=== PATIENT | male | born 1945 | race Caucasian/White ===

== ENCOUNTER 2016-11-22 14:46 | Inpatient (IN) | payer MEDICARE, OTHER ==
[~2016-11-22] VITALS: Ht 180.3 cm; Wt 79.4 kg
[2016-11-22 17:45] VITALS: BP 109/65
--- NOTE | 2016-11-22 17:54 | NUR ---
RN-CO: Notified Dr Mccain and he gave admitting orders. Noted.
[2016-11-22] MEDS ORDERED: LORAZEPAM 0.5 MG TABLET PO PRN (18:00)
[2016-11-22] MEDS ORDERED: ACETAMINOPHEN 325 MG TABLET PO PRN (18:00)
[2016-11-22] MEDS ORDERED: TEMAZEPAM 7.5 MG CAPSULE PO PRN (18:00)
[2016-11-22] MEDS ORDERED: MAGNESIUM HYDROXIDE 30 ML UDC PO PRN (18:00)
[2016-11-22] MEDS ORDERED: MAG HYDROX/AL HYDROX/SIMETH 30 ML UDC PO PRN (18:00)
[2016-11-22 18:27] VITALS: BP 109/65
[2016-11-22 20:00] VITALS: BP 114/50
[2016-11-22] MEDS ORDERED: INSU100I19 SQ (21:02)
[2016-11-22] MEDS ORDERED: METF850T2 PO (21:02)
[2016-11-22] MEDS ORDERED: TAMS-12 PO (21:02)
[2016-11-22] MEDS ORDERED: ACET1TAB23 PO (21:02)
[2016-11-22] MEDS ORDERED: DULO60CA45 PO (21:02)
[2016-11-22] MEDS ORDERED: INSU100V SQ (21:02)
[2016-11-22] MEDS ORDERED: GABA100C PO (21:02)
[2016-11-22] MEDS ORDERED: DONE5TAB3 PO (21:02)
--- NOTE | 2016-11-22 21:03 | NUR ---
GPS/RN NOTE: ADMITTED FROM [facility] ON 5150 HOLD FOR DTS. PER HOLD PATIENT WAS SUICIDAL DUE TO DEPRESSION. UPON FACE TO FACE, PATIENT NOTED TO BE HOPELESS, AND HELPLESS, NO LONGER WANTS TO LIVE WITH HIS NIECE BECAUSE HE FEELS HE IS TOO MUCH TROUBLE, HAS MULTIPLE MEDICAL AND MOBILITY PROBLEM, FEELS LIKE A BURDEN. HE DOES NOT WANT TO LIVE ANYMORE, TOOK 7 PAIN PILLS IN A SUICIDE ATTEMPT. PATIENT IS RESTING IN BED, COMFORTABLE, NO APPARENT DISTRESS NOTED. RESPIRATION EVEN, BREATHING PATTERN NON-LABORED. STATED THAT HE HAS NO PLAN OF HURTING HIMSELF AT THIS TIME. AWAKE, ALERT, ORIENTED X4, THOUGHT PROCESS INTACT, POOR JUDGEMENT, POOR INSIGHT. POOR DECISION MAKING, DEPRESSED, APPROPRIATE. CALM, COOPERATIVE. SKIN ASSESSMENT DONE, SEE PHOTOS. PATIENT IS UNDER THE PSYCHIATRIC CARE OF DR. SOL AND UNDER THE MEDICAL CARE OF GIA REEDER. BELONGINGS INVENTORIED AND CHECKED FOR CONTRABAND, VALUABLES PUT IN TO SAFE. BED LOCKED AND PLACED ON LOWEST POSITION. WILL CONTINUE TO MONITOR Q 15 MINS. TO MAINTAIN SAFETY.
[2016-11-23 06:51] LABS: ALANINE AMINOTRANSFERASE 20 U/L (12-78); ALBUMIN 3.8 g/dL (3.4-5.0); ALKALINE PHOSPHATASE 52 U/L (46-116); ASPARTATE AMINOTRANSFERASE 14 U/L (15-37); BILIRUBIN,TOTAL 0.7 mg/dL (0.2-1.0); CALCIUM, SERUM 9.5 mg/dL (8.5-10.1); CARBON DIOXIDE 28 mmol/L (21-32); CHLORIDE 103 mmol/L (98-107); CREATININE 1.2 mg/dL (0.6-1.3); GLUCOSE 166 mg/dL (74-106); POTASSIUM 3.9 mmol/L (3.5-5.1); SODIUM SERUM 140 mmol/L (136-145); TOTAL PROTEIN, SERUM 7.3 g/dL (6.4-8.2); UREA NITROGEN, BLOOD 25 mg/dL (7-18)
[2016-11-23 07:12] LABS: CHOLESTEROL 183 mg/dL (<200); HDL CHOLESTEROL 25 mg/dL (40-60); LDL 111 mg/dL (0-99); TRIGLYCERIDES 237 mg/dL (30-150)
[2016-11-23 08:00] VITALS: BP 134/68
[2016-11-23] MEDS ORDERED: DEXTROSE 50%-WATER 50 ML DISP.SYRIN IV PRN (15:30)
[2016-11-23 16:00] VITALS: BP 135/57
[2016-11-23] MEDS: METFORMIN 850 MG TABLET PO SCH (16:32)
[2016-11-23] MEDS: GABAPENTIN 100 MG CAPSULE PO SCH (16:32)
[2016-11-23] MEDS ORDERED: GABAPENTIN 100 MG CAPSULE PO SCH (17:00)
[2016-11-23] MEDS: BLOOD SUGAR DIAGNOSTIC 1 EACH STRIP IN SCH ×2 (17:18→21:54)
[2016-11-23] MEDS: INSULIN REGULAR, HUMAN 100 UNIT/ML 3 ML VIAL SQ PRN ×2 (17:56→21:57)
--- NOTE | 2016-11-23 18:00 | NUR ---
BRAZING FURNACE OPERATOR-NOTES PATIENT BLOOD SUGAR WAS 240MG/DL, 4 UNITS OF HUMULIN R GIVEN PRN ORDER.
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
--- NOTE | 2016-11-23 19:30 | NUR ---
PS RN NOTE, RECEIVED PATIENT AWAKE AND IN BED, NO S/S OR COMPLAINTS OF PAIN AT THIS TIME. PATIENT IS DISPLAYING NO S/S OF APPARENT DISTRESS AT THIS TIME. PATIENT BREATHING IS UNLABORED WITH EQUAL RISE AND FALL OF THE CHEST. PATIENT IS ALERT AND ORIENTED X 3 ON ROOM AIR WITH A SPO2 97%. PATIENT COMPLAINT WITH MEDICATION, DEPRESSED, POOR INSIGHT, POOR JUDGEMENT, COOPERATIVE, CONFUSED AT TIMES, AND NEEDS REORIENTATION. PATIENT DENIES SUICIDE AND HOMICIDAL IDEATIONS AT THIS TIME. PATIENT ASSISTED WITH TURNING AND REPOSITIONING Q2HR AND PRN FOR COMFORT AND CIRCULATION. PATIENT HAS NO NEEDS AT THIS TIME. PATIENT EDUCATED ON THE USE OF THE CALL HURT. PATIENT BED SIDE RAILS UP X2 FOR SAFETY, BED IS LOCKED AND LOW WILL CONTINUE TO MONITOR AND MAINTAIN SAFETY.
[2016-11-23 20:00] VITALS: BP 142/75
[2016-11-23] MEDS: DULOXETINE HCL 30 MG CAPSULE.DR PO SCH (20:45)
--- NOTE | 2016-11-23 21:57 | NUR ---
GPS RN NOTE, PERFORMED ACCU CHECK ON PATIENT WITH A BLOOD SUGAR RESULT OF 236. GAVE 4 UNITS OF REGULAR INSULIN AND 12UNITS OF LEVEMIR INSULIN PER SLIDING. WILL CONTINUE TO MONITOR THIS PATIENT.
[2016-11-23] MEDS: INSULIN DETEMIR 100 UNIT/ML CARTRIDGE SQ SCH (21:58)
[2016-11-24 06:37] LABS: BASOPHILS # (AUTO) 0.1 /CMM (0.0-0.2); BASOPHILS % (AUTO) 0.9 % (0.0-2.0); EOSINOPHILS # (AUTO) 0.2 /CMM (0.0-0.7); EOSINOPHILS % (AUTO) 2.4 % (0.0-6.0); HEMATOCRIT 41 % (39-51); HEMOGLOBIN 13.7 g/dL (13.5-17.5); LYMPHOCYTES # (AUTO) 2.4 /CMM (0.8-4.8); LYMPHOCYTES % (AUTO) 31.8 % (20.0-44.0); MEAN CORPUSCULAR HEMOGLOBIN 28 PG (26.0-33.0); MEAN CORPUSCULAR HGB CONC 34 g/dl (31.0-36.0); MEAN CORPUSCULAR VOLUME 82 fL (80-96); MONOCYTES # (AUTO) 0.7 /CMM (0.1-1.30); MONOCYTES % (AUTO) 8.7 % (2.0-12.0); NEUTROPHILS # (AUTO) 4.3 /CMM (1.8-8.9); NEUTROPHILS % (AUTO) 56.2 % (43.0-81.0); PLATELET COUNT (AUTO) 221 /CMM (150-450); RDW COEFFICIENT OF VARIATION 17.8 (11.5-15.0); RED BLOOD CELL COUNT(AUTO) 4.97 MIL/uL (4.5-6.0); WHITE BLOOD COUNT (AUTO) 7.6 K/uL (4.3-11.0)
[2016-11-24 06:50] LABS: CALCIUM, SERUM 9.6 mg/dL (8.5-10.1); CARBON DIOXIDE 28 mmol/L (21-32); CHLORIDE 104 mmol/L (98-107); CREATININE 0.9 mg/dL (0.6-1.3); GLUCOSE 162 mg/dL (74-106); MAGNESIUM 1.5 mg/dL (1.8-2.4); POTASSIUM 3.9 mmol/L (3.5-5.1); SODIUM SERUM 140 mmol/L (136-145); UREA NITROGEN, BLOOD 22 mg/dL (7-18)
[2016-11-24] MEDS: BLOOD SUGAR DIAGNOSTIC 1 EACH STRIP IN SCH ×4 (07:51→21:36)
[2016-11-24 08:00] VITALS: BP 138/71
[2016-11-24] MEDS: DONEPEZIL 5 MG TABLET PO SCH (08:02)
[2016-11-24] MEDS: TAMSULOSIN 0.4 MG CAP.SR.24H PO SCH (08:03)
[2016-11-24] MEDS: GABAPENTIN 100 MG CAPSULE PO SCH ×2 (08:03→16:35)
[2016-11-24] MEDS: METFORMIN 850 MG TABLET PO SCH ×2 (08:03→16:35)
[2016-11-24 08:24] VITALS: BP 138/71
[2016-11-24] MEDS: INSULIN REGULAR, HUMAN 100 UNIT/ML 3 ML VIAL SQ PRN ×4 (08:36→21:38)
[2016-11-24 16:00] VITALS: BP 107/60
[2016-11-24] MEDS ORDERED: DEXTROSE 50%-WATER 50 ML DISP.SYRIN IV PRN (18:30)
[2016-11-24 20:03] VITALS: BP 99/59
[2016-11-24] MEDS: DULOXETINE HCL 30 MG CAPSULE.DR PO SCH (20:20)
--- NOTE | 2016-11-24 20:30 | NUR ---
GPS/RN NOTE: RESTING COMFORTABLY IN BED, AWAKE, ALERT, ORIENTED X3, NO APPARENT DISTRESS NOTED. SKIN ASSESSMENT DONE, PHOTOS TAKEN. WILL CONTINUE TO MONITOR.
[2016-11-24] MEDS: INSULIN DETEMIR 100 UNIT/ML CARTRIDGE SQ SCH (21:40)
--- NOTE | 2016-11-24 21:41 | NUR ---
GPS/RN NOTE: ACCUCHECK 234 MG/DL. 4 UNITS REGULAR INSULIN S. SCALE SC. ADMINISTERED. HS SNACKS GIVEN.
--- NOTE | 2016-11-25 07:30 | NUR ---
GPS/RN BS 131, ADMINISTERED 2 UNITS REGULAR INSULIN, WILL CONTINUE TO MONITOR.
[2016-11-25 08:00] VITALS: BP 157/83
[2016-11-25] MEDS: DONEPEZIL 5 MG TABLET PO SCH (08:17)
[2016-11-25] MEDS: GABAPENTIN 100 MG CAPSULE PO SCH ×2 (08:17→16:15)
[2016-11-25] MEDS: METFORMIN 850 MG TABLET PO SCH ×2 (08:17→16:15)
[2016-11-25] MEDS: TAMSULOSIN 0.4 MG CAP.SR.24H PO SCH (08:17)
[2016-11-25] MEDS: INSULIN REGULAR, HUMAN 100 UNIT/ML 3 ML VIAL SQ PRN ×4 (08:20→22:11)
[2016-11-25] MEDS: BLOOD SUGAR DIAGNOSTIC 1 EACH STRIP IN SCH ×4 (08:50→22:13)
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
--- NOTE | 2016-11-25 12:00 | NUR ---
GPS/RN BS 191, ADMINISTERED 3 UNITS REGULAR INSULIN, WILL CONTINUE TO MONITOR.
[2016-11-25 16:00] VITALS: BP 128/63
--- NOTE | 2016-11-25 18:00 | NUR ---
GPS/RN BS 230, ADMINISTERED 4 UNITS REGULAR INSULIN, WILL CONTINUE TO MONITOR.
--- NOTE | 2016-11-25 18:17 | NUR ---
Initial discharge plan: Pt. states he was living at an assisted living but did not like it there and went home with his nephew and niece at [address] [facility] [address] and would like to be placed in a facility. SW will follow up with the patient and MD and will find an accepting facility for the patient. SW will help a form and safe and discharge.
[2016-11-25 19:45] VITALS: BP 104/56
[2016-11-25] MEDS: DULOXETINE HCL 30 MG CAPSULE.DR PO SCH ×2 (20:29→21:46)
[2016-11-25] MEDS: ATORVASTATIN 40 MG TABLET PO SCH (21:45)
[2016-11-25] MEDS: INSULIN DETEMIR 100 UNIT/ML CARTRIDGE SQ SCH (22:12)
--- NOTE | 2016-11-26 06:29 | NUR ---
RN GPS NOTE PT .REMAINED IN STABLE CONDITION RESTING IN HER BED ,NO ACUTE DISTRESS NOTED ATTENDED ALL NEEDS AND ANTICIPATED ,WILL ENDORSE TO NEXT SHIFT FOR CONTINUITY OF CARE
[2016-11-26 08:00] VITALS: BP 126/69
--- NOTE | 2016-11-26 08:00 | NUR ---
GPS/RN BS 210, ADMINISTERED 4 UNITS REGULAR INSULIN, WILL CONTINUE TO MONITOR.
[2016-11-26] MEDS: TAMSULOSIN 0.4 MG CAP.SR.24H PO SCH (08:04)
[2016-11-26] MEDS: DONEPEZIL 5 MG TABLET PO SCH (08:04)
[2016-11-26] MEDS: BLOOD SUGAR DIAGNOSTIC 1 EACH STRIP IN SCH ×4 (08:04→21:47)
[2016-11-26] MEDS: NICOTINE PATCH (7MG) 7 MG PATCH.TD24 TD SCH (08:04)
[2016-11-26] MEDS: ASPIRIN 81 MG TAB.CHEW PO SCH (08:04)
[2016-11-26] MEDS: GABAPENTIN 100 MG CAPSULE PO SCH ×3 (08:04→16:31)
[2016-11-26] MEDS: METFORMIN 850 MG TABLET PO SCH ×2 (08:04→16:31)
[2016-11-26] MEDS: INSULIN REGULAR, HUMAN 100 UNIT/ML 3 ML VIAL SQ PRN ×4 (08:09→22:17)
--- NOTE | 2016-11-26 12:30 | NUR ---
GPS/RN BS 229, ADMINISTERED 4 UNITS REGULAR INSULIN, WILL CONTINUE TO MONITOR.
--- NOTE | 2016-11-26 15:38 | NUR ---
GIUSEPPE sent a referral to [facility] [address], [place] [address] . Will follow up Addendum: 11/27/16 at 1221 by ELIDIA CHIN Per August from the facility, pt has been accepted to [facility]
[2016-11-26 16:00] VITALS: BP 106/60
[2016-11-26 21:22] VITALS: BP 116/69
[2016-11-26] MEDS: ATORVASTATIN 40 MG TABLET PO SCH (21:30)
[2016-11-26] MEDS: DULOXETINE HCL 30 MG CAPSULE.DR PO SCH (21:30)
--- NOTE | 2016-11-26 21:43 | NUR ---
GPS RN NOTE, PERFORMED ACCU CHECK ON PATIENT WITH A BLOOD SUGAR RESULT OF 178. GAVE 3 UNITS OF REGULAR INSULIN AND 12UNITS OF LEVEMIR INSULIN PER SLIDING. WILL CONTINUE TO MONITOR THIS PATIENT.
[2016-11-26] MEDS: INSULIN DETEMIR 100 UNIT/ML CARTRIDGE SQ SCH (22:18)
[2016-11-27 08:15] VITALS: BP 138/75
[2016-11-27] MEDS: DONEPEZIL 5 MG TABLET PO SCH (08:39)
[2016-11-27] MEDS: METFORMIN 850 MG TABLET PO SCH ×2 (08:39→16:27)
[2016-11-27] MEDS: ASPIRIN 81 MG TAB.CHEW PO SCH (08:39)
[2016-11-27] MEDS: NICOTINE PATCH (7MG) 7 MG PATCH.TD24 TD SCH (08:39)
[2016-11-27] MEDS: GABAPENTIN 100 MG CAPSULE PO SCH ×3 (08:39→16:27)
[2016-11-27] MEDS: TAMSULOSIN 0.4 MG CAP.SR.24H PO SCH (08:39)
[2016-11-27] MEDS: INSULIN REGULAR, HUMAN 100 UNIT/ML 3 ML VIAL SQ PRN ×4 (08:58→21:41)
[2016-11-27] MEDS: BLOOD SUGAR DIAGNOSTIC 1 EACH STRIP IN SCH ×4 (08:59→21:38)
--- NOTE | 2016-11-27 13:31 | NUR ---
GPS RN NOTE: PT WAS SEEN AND EXAMINE BY DR RAMIREZ NEW ORDER FOR COMMUNICATIONS ASSISTANT ORDER PLACED AND CARED OUT
[2016-11-27 16:00] VITALS: BP 128/64
--- NOTE | 2016-11-27 16:06 | NUR ---
SW attempted to call pt's niece, Yue [phone] but the phone kept ringing with a busy signal at the end. GIUSEPPE was unable to leave a voicemail. When asked the patient for a different number, pt. said he does not have it. Will attempt again later.
--- NOTE | 2016-11-27 16:09 | NUR ---
SW spoke with the patient and notified him of his acceptance to [facility] [address] [place] [address] and patient agrees to be transferred there upon discharge for short term rehabilitation.
--- NOTE | 2016-11-27 19:30 | NUR ---
RN NOTE; RECEIVED PT UP IN BED SLEEPING, AROUSES EASILY. CALM AND QUIET FOR NOW. BREATHING EVENLY. NO SOB. NAD. NO S/S OR C/O PAIN OR DISCOMFORT. UNDER CLOSE SUPERVISION FOR SAFETY . BED LOW LOCKED. NEEDS ATTENDED. WILL CONT TO MONITOR.
[2016-11-27 20:00] VITALS: BP 117/61
[2016-11-27] MEDS: DULOXETINE HCL 30 MG CAPSULE.DR PO SCH (20:26)
[2016-11-27] MEDS: ATORVASTATIN 40 MG TABLET PO SCH (21:39)
[2016-11-27] MEDS: INSULIN DETEMIR 100 UNIT/ML CARTRIDGE SQ SCH (21:41)
--- NOTE | 2016-11-28 06:19 | NUR ---
RN NOTE; PT IN BED SLEEPING, AROUSES EASILY. BREATHING EVENLY. NO ACUTE CHANGES OVER THE NIGHT . AHD A GOOD NIGHT SLEEP. COMPLIANT W/ MEDS. NO S/S OF HYPO OR HYPERGLYCEMIA. NEEDS ATTENDED. ASSISTED W/ ADLS. WILL CONT TO MONITOR AND WILL ENDORSE TO AM SHIFT FOR ELAINE.
[2016-11-28 08:00] VITALS: BP 135/80
[2016-11-28] MEDS: GABAPENTIN 100 MG CAPSULE PO SCH ×3 (08:04→17:26)
[2016-11-28] MEDS: NICOTINE PATCH (7MG) 7 MG PATCH.TD24 TD SCH (08:05)
[2016-11-28] MEDS: BLOOD SUGAR DIAGNOSTIC 1 EACH STRIP IN SCH ×4 (08:05→21:32)
[2016-11-28] MEDS: ASPIRIN 81 MG TAB.CHEW PO SCH (08:05)
[2016-11-28] MEDS: METFORMIN 850 MG TABLET PO SCH ×2 (08:05→17:26)
[2016-11-28] MEDS: DONEPEZIL 5 MG TABLET PO SCH (08:05)
[2016-11-28] MEDS: TAMSULOSIN 0.4 MG CAP.SR.24H PO SCH (08:05)
--- NOTE | 2016-11-28 13:00 | NUR ---
GPS/RN BS 220, ADMINISTERED 4 UNITS REGULAR INSULIN, WILL CONTINUE TO MONITOR.
[2016-11-28] MEDS: INSULIN REGULAR, HUMAN 100 UNIT/ML 3 ML VIAL SQ PRN ×3 (13:37→21:34)
[2016-11-28 16:40] VITALS: BP 119/63
[2016-11-28 16:43] VITALS: BP 141/60
--- NOTE | 2016-11-28 17:50 | NUR ---
GPS/RN BS 174, ADMINISTERED 3 UNITS REGULAR INSULIN, WILL CONTINUE TO MONITOR.
--- NOTE | 2016-11-28 19:30 | NUR ---
GPS RN NOTE, RECEIVED PATIENT AWAKE AND IN BED, NO S/S OR COMPLAINTS OF PAIN AT THIS TIME. PATIENT IS DISPLAYING NO S/S OF APPARENT DISTRESS AT THIS TIME. PATIENT BREATHING IS UNLABORED WITH EQUAL RISE AND FALL OF THE CHEST. PATIENT IS ALERT AND ORIENTED X 3 ON ROOM AIR WITH A SPO2 99%. PATIENT COMPLAINT WITH MEDICATION, BRIGHT DISPOSITION, ANXIOUS, AND NEEDS REORIENTATION. PATIENT DENIES SUICIDE AND HOMICIDAL IDEATIONS AT THIS TIME. PATIENT ASSISTED WITH TURNING AND REPOSITIONING Q2HR AND PRN FOR COMFORT AND CIRCULATION. PATIENT HAS NO NEEDS AT THIS TIME. PATIENT EDUCATED ON THE USE OF THE CALL HURT. PATIENT BED SIDE RAILS UP X2 FOR SAFETY, BED IS LOCKED AND LOW WILL CONTINUE TO MONITOR AND MAINTAIN SAFETY. Addendum: 11/28/16 at 1957 by KELTON FAIRBANKS RN WRONG PATIENT.
[2016-11-28 20:00] VITALS: BP 103/57
[2016-11-28] MEDS: DULOXETINE HCL 30 MG CAPSULE.DR PO SCH (20:06)
[2016-11-28] MEDS: ATORVASTATIN 40 MG TABLET PO SCH (20:07)
--- NOTE | 2016-11-28 20:08 | NUR ---
GPS/RN NOTE: PATIENT REQUESTED FOR HIS LIPITOR AT THIS TIME, 40 MG CAP PO GIVEN.
[2016-11-28] MEDS: INSULIN DETEMIR 100 UNIT/ML CARTRIDGE SQ SCH (21:37)
--- NOTE | 2016-11-28 21:37 | NUR ---
GPS/RN NOTE: ACCUCHECK 173 MG/DL, 3 UNITS REG. INSULIN SC ADMINISTERED WITH HS SNACKS.
[2016-11-29] MEDS: BLOOD SUGAR DIAGNOSTIC 1 EACH STRIP IN SCH ×2 (08:01→11:54)
[2016-11-29] MEDS: INSULIN REGULAR, HUMAN 100 UNIT/ML 3 ML VIAL SQ PRN ×2 (08:14→13:10)
[2016-11-29 08:17] VITALS: BP 124/58
[2016-11-29] MEDS: METFORMIN 850 MG TABLET PO SCH (08:37)
[2016-11-29] MEDS: TAMSULOSIN 0.4 MG CAP.SR.24H PO SCH (08:37)
[2016-11-29] MEDS: ASPIRIN 81 MG TAB.CHEW PO SCH (08:37)
[2016-11-29] MEDS: GABAPENTIN 100 MG CAPSULE PO SCH ×2 (08:37→13:04)
[2016-11-29] MEDS: DONEPEZIL 5 MG TABLET PO SCH (08:37)
[2016-11-29] MEDS: NICOTINE PATCH (7MG) 7 MG PATCH.TD24 TD SCH (08:37)
--- NOTE | 2016-11-29 09:30 | NUR ---
RN-CO: Dr SOL GAVE AN ORDER TO DISCHARGE PATIENT AND DISCONTINUE HOLD, NOTED.
--- NOTE | 2016-11-29 15:26 | NUR ---
Discharge note: Pt. was discharged to [facility] [address] [place] [address] [facility]. SW attempted to call pt's Yue vu [phone] again and she was not available again. SW spoke with the patient and pt. agreed to be discharged, was calm and cooperative, denied suicidal/homicidal ideations. Pt was alert and oriented x4. RN provided discharge instructions to the accepting facility and discharge paperwork has been signed. Pt. will follow up with Dr. Mccain at the facility to discuss medication overuse on December 03 at 10:30AM and as pt. is a smoker, was provided a referral to [facility] on Saturday, December 02 at 3:00 PM by calling [phone] PIN: [id number] . Pt. was provided with the information and agreed to attend.
--- NOTE | 2016-11-29 15:50 | NUR ---
DISCHARGE NOTES/PATIENT DISCHARGE AT THIS TIME FROM GPS. PATIENT A/O X3, MED COMPLIANT, MEDICALLY STABLE, NO C/O PAIN. PATIENT DENIED SI/HI/AVH AT THIS TIME. MED RECONCILIATION, AND DISCHARGE ORDER REVIEWED AND EXPLAINED TO. PATIENT REFUSED SIGN PAPERWORK, AND PICTURE TO BE TAKEN. REPORT GIVEN SNF RN . RN VERBALIZED UNDERSTANDING. BELONGING RETURNED BACK TO THE PATIENT. PATIENT TOOL CLERK BY AMBULANCE.
[2016-11-29 15:52] VITALS: BP 111/62
== END 2016-11-29 15:50 | DRG 885 ==
LOC: GPS 16:55
PROVIDERS: ADMIT Psychiatry & Neurology Psychiatry; ATTEND Psychiatry & Neurology Psychiatry
DX: F33.2 Major depressive disorder, recurrent severe without psychotic features (principal); F02.80 Dementia in other diseases classified elsewhere, unspecified severity, without behavioral disturbance, psychotic disturbance, mood disturbance, and anxiety; N17.0 Acute kidney failure with tubular necrosis; E11.65 Type 2 diabetes mellitus with hyperglycemia; I69.351 Hemiplegia and hemiparesis following cerebral infarction affecting right dominant side; I10 Essential (primary) hypertension; E78.5 Hyperlipidemia, unspecified; N40.0 Benign prostatic hyperplasia without lower urinary tract symptoms; G89.29 Other chronic pain; F41.9 Anxiety disorder, unspecified; G30.9 Alzheimer's disease, unspecified; F01.50 Vascular dementia, unspecified severity, without behavioral disturbance, psychotic disturbance, mood disturbance, and anxiety; T14.91 Suicide attempt
CPT/HCPCS: 36415; 80048-TC; 80053-TC; 80061-TC; 82962-TC; 83735-TC; 85025-TC; 87081-TC; 97001-TC; 97116-TC; 97530-TC; J1815; Z7610

== ENCOUNTER 2016-12-25 13:47 | Inpatient (IN) | payer MEDICARE, OTHER ==
[~2016-12-25] VITALS: Ht 185.4 cm; Wt 90.7 kg
[~2016-12-25 13:47] MED LIST: ACET1TAB23 PO; DONE5TAB3 PO; GABA100C PO; INSU100I19 SQ; INSU100V SQ; METF850T2 PO; TAMS-12 PO
--- NOTE | 2016-12-25 13:47 | NUR ---
BB FROM [facility]ESS[facility]IOR TOWARDS STAFF, FOR MEDICAL CLEARANCE FOR GPS ADMIT. NAD NOTED. PT IS VERBALLY AGRESSIVE, BUT NON COMBATIVE AT THIS TIME. PENDING MD MACEDO.
--- NOTE | 2016-12-25 14:36 | NUR ---
CALLED [facility], ETA OF 1 HR WAS GIVEN.
--- NOTE | 2016-12-25 15:29 | NUR ---
HIRA RN AT BEDSIDE FOR EVAL.
--- NOTE | 2016-12-25 15:51 | NUR ---
REPORT GIVEN TO SHERWIN GIBBONS FOR ELAINE
[2016-12-25 16:30] VITALS: BP 100/62
--- NOTE | 2016-12-25 16:34 | NUR ---
RN NOTES RECEIVED PATIENT FROM ER VIA WHEELCHAIR. PATIENT IS ALERT AND ORIENTED X 3, TO NAME, PLACE, AND TIME. PATIENT IS VERBALLY AGGRESSIVE BUT NON COMBATIVE, UNCOOPERATIVE, REFUSED CARE, REFUSED BODY CHECK, REFUSED VITAL SIGNS. PER PATIENT "IM NOT DOING A DAMN THING!". NO ACUTE DISTRESS, NO SOB NOTED. DENIES ANY PAIN OR DISCOMFORT. PATIENT DENIES ANY SUICIDAL IDEATION. KEPT PATIENT SAFE AND COMFORTABLE. BED IN LOW POSITION, LOCKED, SIDE RAILS UP X 2. CALL HURT WITHIN REACH, MAINTAINED A SAFE ENVIRONMENT. WILL CONTINUE TO MONITOR ACCORDINGLY.
--- NOTE | 2016-12-25 16:35 | NUR ---
RN NOTES PATIENT ADMITTED ON 5150 HOLD FOR DANGER TO OTHERS AND GD. PATIENT IS AGGRESSIVE WITH STAFF AT BOARD AND CARE. DR DAMON AND MARY NOTIFIED.
--- NOTE | 2016-12-25 17:00 | NUR ---
CALL OUT TO DR. DAMON AND DR. HERNANDEZ FOR ORDERS,RECEIVED ORDERS.
[2016-12-25] MEDS ORDERED: DOCU-170 PO (17:30)
[2016-12-25] MEDS ORDERED: MAG30ORA PO (17:30)
[2016-12-25] MEDS ORDERED: TEMAZEPAM 15 MG CAPSULE PO PRN ×2 (17:30→18:00)
[2016-12-25] MEDS ORDERED: clonazePAM 0.5 MG TABLET PO PRN (17:30)
[2016-12-25] MEDS ORDERED: ASPI81TA2 PO (17:30)
[2016-12-25] MEDS ORDERED: NICO1PAT10 TD (17:30)
[2016-12-25] MEDS ORDERED: MAGN400O6 PO (17:30)
[2016-12-25] MEDS ORDERED: ACET325T53 PO ×2 (17:30→17:43)
[2016-12-25] MEDS ORDERED: TEMA15CA5 PO (17:30)
[2016-12-25] MEDS ORDERED: INSU100V3 SQ (17:30)
[2016-12-25] MEDS ORDERED: ATOR40TA PO (17:30)
[2016-12-25] MEDS ORDERED: LORA0.5T PO (17:30)
[2016-12-25] MEDS ORDERED: MAGN400T6 PO (17:30)
[2016-12-25] MEDS ORDERED: DULO30CA2 PO (17:40)
[2016-12-25] MEDS ORDERED: DEXTROSE 50%-WATER 50 ML DISP.SYRIN IV PRN (18:00)
[2016-12-25] MEDS: TAMSULOSIN 0.4 MG CAP.SR.24H PO SCH (18:00)
[2016-12-25] MEDS: METFORMIN 850 MG TABLET PO SCH (18:00)
[2016-12-25] MEDS: NICOTINE PATCH (14MG) 14 MG PATCH.TD24 TD SCH (18:00)
[2016-12-25] MEDS ORDERED: INSULIN REGULAR, HUMAN 100 UNIT/ML 3 ML VIAL SQ PRN (18:00)
[2016-12-25] MEDS: BLOOD SUGAR DIAGNOSTIC 1 EACH STRIP IN SCH ×2 (18:00→21:00)
[2016-12-25] MEDS ORDERED: MAGNESIUM HYDROXIDE 30 ML UDC PO PRN (18:30)
[2016-12-25] MEDS ORDERED: MAG HYDROX/AL HYDROX/SIMETH 30 ML UDC PO PRN (18:30)
[2016-12-25] MEDS ORDERED: ACETAMINOPHEN 325 MG TABLET PO PRN (18:30)
--- NOTE | 2016-12-25 18:30 | NUR ---
REFUSED [facility]. MEDS AND ACCU-CHECK.
--- NOTE | 2016-12-25 19:00 | NUR ---
RN NOTES PATIENT IN BED RESTING, NO ACUTE DISTRESS, NO SOB NOTED. STILL REFUSED CARE, UNCOOPERATIVE. DENIES ANY PAIN OR DISCOMFORT. KEPT PATIENT SAFE AND COMFORTABLE. BED IN LOW POSITION, SIDE RAILS UP X2, CALL HURT IN REACH. ENDORSED TO EXPLOSIVE ORDNANCE DISPOSAL TECHNICIAN RN FOR CONTINUITY OF CARE.
[2016-12-25] MEDS ORDERED: DULOXETINE HCL 30 MG CAPSULE.DR PO SCH (22:00)
[2016-12-25] MEDS: INSULIN DETEMIR 100 UNIT/ML CARTRIDGE SQ SCH (22:00)
[2016-12-25] MEDS: ATORVASTATIN 40 MG TABLET PO SCH (22:15)
--- NOTE | 2016-12-25 23:13 | NUR ---
GPS RN NOTES PATIENT INITIALLY REFUSED MEDICATION AND ACCU CHECK. EXPLAINED BENEFITS OF MEDICATION AND ACCU CHECK. TOOK HIS LIPITOR BUT STILL REFUSED ACCU CHECKS. PATIENT ALSO REFUSED TO CHANGE INTO HOSPITAL GOWN AND DO A BODY CHECK. REFUES TO HAVE HIS PICTURE TAKEN WELL. WILL TRY BODY CHECK AGAIN IN AM.
[2016-12-26] MEDS: BLOOD SUGAR DIAGNOSTIC 1 EACH STRIP IN SCH ×6 (01:00→21:43)
--- NOTE | 2016-12-26 01:23 | NUR ---
GPS RN NOTES PATIENT REFUSED ACCU CHECK AT THIS TIME.
[2016-12-26 07:23] LABS: BASOPHILS # (AUTO) 0.1 /CMM (0.0-0.2); BASOPHILS % (AUTO) 0.9 % (0.0-2.0); EOSINOPHILS # (AUTO) 0.2 /CMM (0.0-0.7); EOSINOPHILS % (AUTO) 2.8 % (0.0-6.0); HEMATOCRIT 38 % (39-51); HEMOGLOBIN 12.6 g/dL (13.5-17.5); LYMPHOCYTES # (AUTO) 1.8 /CMM (0.8-4.8); LYMPHOCYTES % (AUTO) 27.1 % (20.0-44.0); MEAN CORPUSCULAR HEMOGLOBIN 27 PG (26.0-33.0); MEAN CORPUSCULAR HGB CONC 33 g/dl (31.0-36.0); MEAN CORPUSCULAR VOLUME 83 fL (80-96); MONOCYTES # (AUTO) 0.8 /CMM (0.1-1.30); MONOCYTES % (AUTO) 11.9 % (2.0-12.0); NEUTROPHILS # (AUTO) 3.8 /CMM (1.8-8.9); NEUTROPHILS % (AUTO) 57.3 % (43.0-81.0); PLATELET COUNT (AUTO) 229 /CMM (150-450); RDW COEFFICIENT OF VARIATION 18.7 (11.5-15.0); WHITE BLOOD COUNT (AUTO) 6.7 K/uL (4.3-11.0)
[2016-12-26 07:42] LABS: CHOLESTEROL 108 mg/dL (<200); HDL CHOLESTEROL 36 mg/dL (40-60); LDL 58 mg/dL (0-99); THYROID STIMULATING HORMONE 1.182 uIU/mL (0.358-3.74); TRIGLYCERIDES 120 mg/dL (30-150)
[2016-12-26 07:43] LABS: IRON, SERUM 95 ug/dl (50-175); TOTAL IRON BINDING CAPACITY 236 ug/dl (250-450)
[2016-12-26 07:46] LABS: ALANINE AMINOTRANSFERASE 28 U/L (12-78); ALKALINE PHOSPHATASE 69 U/L (46-116); ASPARTATE AMINOTRANSFERASE 14 U/L (15-37); BILIRUBIN,DIRECT 0.1 mg/dL (0.0-0.2); BILIRUBIN,TOTAL 0.6 mg/dL (0.2-1.0); CALCIUM, SERUM 9.3 mg/dL (8.5-10.1); CARBON DIOXIDE 29 mmol/L (21-32); CHLORIDE 105 mmol/L (98-107); GLUCOSE 187 mg/dL (74-106); MAGNESIUM 1.8 mg/dL (1.8-2.4); PHOSPHORUS 3.7 mg/dL (2.5-4.9); POTASSIUM 4.5 mmol/L (3.5-5.1); SODIUM SERUM 141 mmol/L (136-145); TOTAL PROTEIN, SERUM 7.2 g/dL (6.4-8.2); UREA NITROGEN, BLOOD 14 mg/dL (7-18)
[2016-12-26] MEDS: ASPIRIN 81 MG TAB.CHEW PO SCH (09:46)
[2016-12-26] MEDS: NICOTINE PATCH (14MG) 14 MG PATCH.TD24 TD SCH (09:46)
[2016-12-26] MEDS: GABAPENTIN 100 MG CAPSULE PO SCH ×3 (09:46→17:00)
[2016-12-26] MEDS: TAMSULOSIN 0.4 MG CAP.SR.24H PO SCH (09:46)
[2016-12-26] MEDS: METFORMIN 850 MG TABLET PO SCH ×2 (09:46→17:00)
[2016-12-26] MEDS: DOCUSATE SODIUM 100 MG CAPSULE PO SCH (09:46)
--- NOTE | 2016-12-26 13:30 | NUR ---
GPS RN: PATIENT REMAINS IN BED. REFUSED LUNCH DESPITE THE ENCOURAGEMENT, EASILY AGITATED AND LOUD, WANTS TO GET HIS WHEELCHAIR, OTHERWISE REFUSES TO EAT. RN OFFERED TO FIND ANOTHER WHEELCHAIR, HOWEVER, PT REFUSED AND DEMANDING HIS OWN WHEELCHAIR WHICH IS SUPPOSEDLY IN THE FACILITY FROM WHICH HE CAME FROM. UNABLE TO CONVINCE THE PATIENT TO EAT AT THIS TIME. HOWEVER HE TOOK HIS MEDICATIONS. PATIENT'S BS IS 182MG/DL, SLIDING SCALE COVERAGE IS NOT GIVEN, SINCE PT REFUSED TO EAT. NO S/S OF ACUTE DISTRESS, NO C/O PAIN OR DISCOMFORT, CONTINUE TO MONITOR THE PATIENT, ENCOURAGE TO EAT AND PROVIDE A SAFE ENVIRONMENT.
--- NOTE | 2016-12-26 14:40 | NUR ---
Initial Discharge note: Pt. is a resident at [address], [place] [address] . GI[facility]PPE contacted August to check for readmittance but has not heard back yet. GI[facility]PPE will contact pt's Yue vu [phone] regarding discharge plan. GI[facility]PPE will help arrange for a safe and proper discharge. Addendum: 12/27/16 at 1710 by ELIDIA CHIN Per August from facility, pt. may need to be relocated to a different facility. They are unable to provide care due to pt's aggressive behavior.
--- NOTE | 2016-12-26 14:45 | NUR ---
I have reviewed this patient's psychosocial dated 11/25/16 and I can attest to the accuracy of the information therein. There have been no changes since his last assessment. During this admission, pt is irritable, appears somewhat disorganized, denies suicidal/homicidal ideations at this time, denies hallucinations, has an appropriate affect. Pt. does not want to eat or drink and keeps asking for his wheelchair. Pt. says he will not do anything until they bring him his wheelchair. SW attempted to speak with the patient to convince him to eat but pt. continues to resist. Pt's judgement is poor at this time.
[2016-12-26 16:00] VITALS: BP 113/62
[2016-12-26] MEDS ORDERED: DEXTROSE 50%-WATER 50 ML DISP.SYRIN IV PRN (16:00)
[2016-12-26] MEDS ORDERED: DULOXETINE HCL 30 MG CAPSULE.DR PO SCH (17:00)
[2016-12-26] MEDS: QUETIAPINE FUMARATE 25 MG TABLET PO SCH (17:00)
--- NOTE | 2016-12-26 17:48 | NUR ---
GPS RN: PATIENT BECAME AGITATED WHEN OFFERED 1700 MEDICATIONS. PATIENT IS FOCUSED ON HIS WHEELCHAIR AND REFUSES TO EAT AND TAKE MEDICATIONS UNLESS HE WILL GET HIS WHEELCHAIR BACK. PATIENT IS AGITATED AND YELLING "YOU PEOPLE ARE LYING TO ME, I DON'T WANT ANYTHING FROM YOU PEOPLE". UNABLE TO OBTAIN A URINE SAMPLE WELL. PATIENT'S BG IS 139, SS COVERAGE NOT GIVEN, PT REFUSED DINNER.
[2016-12-26] MEDS: INSULIN REGULAR, HUMAN 100 UNIT/ML 3 ML VIAL SQ PRN (17:52)
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
[2016-12-26] MEDS: ATORVASTATIN 40 MG TABLET PO SCH (21:43)
[2016-12-26] MEDS: INSULIN DETEMIR 100 UNIT/ML CARTRIDGE SQ SCH (21:44)
--- NOTE | 2016-12-26 21:45 | NUR ---
GPS/TRIBAL COUNCIL MEMBER NOTES: PT. REFUSED ALL HS MEDS AND HS ACCUCHECK ORDERED. OFFERED 3X. EXPLAINED RISK AND BENEFITS. PT. STILL REFUSED AND GETS EASILY AGITATED. NO DISTRESS NOTED. WILL CONTINUE TO MONITOR.
--- NOTE | 2016-12-27 07:25 | NUR ---
GPS RN: RECEIVED PATIENT IN BED. PATIENT IS AGITATED AND YELLING "YOU PEOPLE ARE ALL LIARS, LEAVE ME ALONE!" PT REFUSED ACCUCHECK AND VS. UNABLE TO REDIRECT THE PATIENT, HE IS DISRUPTIVE AND CONTINUES TO YELL, NOT FOLLOWING DIRECTIONS. SAFETY PRECAUTIONS OBSERVED AT ALL TIMES. BED IN LOCKED POSITION AND SR UP X3 FOR SAFETY. PATIENT IS SITUATED CLOSE TO THE NURSING STATION. PROVIDED WITH CALM AND SAFE ENVIRONMENT. NO S/S OF ACUTE DISTRESS NOTED AT THIS TIME. CONTINUE TO MONITOR THE PATIENT.
[2016-12-27] MEDS: BLOOD SUGAR DIAGNOSTIC 1 EACH STRIP IN SCH ×4 (07:30→22:00)
[2016-12-27] MEDS: TAMSULOSIN 0.4 MG CAP.SR.24H PO SCH (09:00)
[2016-12-27] MEDS: GABAPENTIN 100 MG CAPSULE PO SCH ×3 (09:00→17:15)
[2016-12-27] MEDS: QUETIAPINE FUMARATE 25 MG TABLET PO SCH (09:00)
[2016-12-27] MEDS: METFORMIN 850 MG TABLET PO SCH ×2 (09:00→17:15)
[2016-12-27] MEDS: ASPIRIN 81 MG TAB.CHEW PO SCH (09:00)
[2016-12-27] MEDS: DOCUSATE SODIUM 100 MG CAPSULE PO SCH (09:00)
[2016-12-27] MEDS: NICOTINE PATCH (14MG) 14 MG PATCH.TD24 TD SCH (09:00)
[2016-12-27] MEDS: DULOXETINE HCL 30 MG CAPSULE.DR PO SCH (09:00)
--- NOTE | 2016-12-27 09:30 | NUR ---
GPS RN: FACILITY CONTACTED AND THEY WILL DELIVER THE WHEELCHAIR TODAY ACCORDING TO RN COMMISSIONS ANALYST SHERRIE. WILL FOLLOW UP.
--- NOTE | 2016-12-27 12:30 | NUR ---
GPS RN: CALLED [facility] TO FOLLOW UP REGARDING THE WHEELCHAIR. PER RN BANDING MACHINE OPERATOR SHERRIE THEY ARE ON THEIR WAY TO THE HOSPITAL. THE PATIENT STILL REFUSING TO EAT UNTIL HE WILL HAVE HIS WHEELCHAIR BACK.
--- NOTE | 2016-12-27 15:59 | NUR ---
GPS RN: [facility], RN.
[2016-12-27 16:00] VITALS: BP 148/64
--- NOTE | 2016-12-27 16:06 | NUR ---
GPS DIE ATTACHER NOTE RECEIVED PATIENT FROM [facility] IN STABLE CONDITION. PT IS CALM AT THE MOMENT AND SITTING IN HIS WHEELCHAIR. SAFETY PRECAUTIONS OBSERVED AT ALL TIMES. PATIENT IS SITUATED CLOSE TO THE NURSING STATION. PROVIDED WITH CALM AND SAFE ENVIRONMENT. NO S/S OF ACUTE DISTRESS NOTED AT THIS TIME. WILL CONTINUE TO MONITOR THE PATIENT.
--- NOTE | 2016-12-27 16:38 | NUR ---
GPS RM FLOAT NOTE PT. TAKEN DOWN TO X-RAY ACCOMPANIED BY JORGE
--- NOTE | 2016-12-27 16:50 | NUR ---
GPS TWISTING OPERATOR NOTES PT. BACK ON UNIT FROM X-RAY
--- NOTE | 2016-12-27 17:08 | NUR ---
GI[facility]PPE faxed a referral to [facility] [address] [place] [address] . GIUSEPPE will follow up Addendum: 01/01/17 at 1253 by ELIDIA CHIN Per CJ from the facility, pt has been accepted.
[2016-12-27] MEDS: INSULIN REGULAR, HUMAN 100 UNIT/ML 3 ML VIAL SQ PRN (17:39)
--- NOTE | 2016-12-27 19:25 | NUR ---
GPS/RN NOTE: PATIENT RESTING IN BED, COMFORTABLE, NO APPARENT DISTRESS NOTED.
[2016-12-27 20:57] VITALS: BP 118/58
[2016-12-27] MEDS: INSULIN DETEMIR 100 UNIT/ML CARTRIDGE SQ SCH (22:00)
[2016-12-27] MEDS: ATORVASTATIN 40 MG TABLET PO SCH (23:20)
--- NOTE | 2016-12-27 23:21 | NUR ---
GPS/RN NOTE: ACCUCHECK 105 MG /DL, NO INSULIN DUE AT THIS TIME.
--- NOTE | 2016-12-28 07:30 | NUR ---
RECEIVED PT. COOPERATIVE,VS STABLE.GROGGY,BUT AROUSABLE.
[2016-12-28 08:00] VITALS: BP 107/53
[2016-12-28] MEDS: BLOOD SUGAR DIAGNOSTIC 1 EACH STRIP IN SCH ×4 (08:00→22:06)
[2016-12-28] MEDS: INSULIN REGULAR, HUMAN 100 UNIT/ML 3 ML VIAL SQ PRN ×4 (08:05→22:09)
[2016-12-28] MEDS: QUETIAPINE FUMARATE 25 MG TABLET PO SCH ×2 (08:20→17:43)
[2016-12-28] MEDS: METFORMIN 850 MG TABLET PO SCH ×2 (08:20→17:43)
[2016-12-28] MEDS: TAMSULOSIN 0.4 MG CAP.SR.24H PO SCH (08:21)
[2016-12-28] MEDS: ASPIRIN 81 MG TAB.CHEW PO SCH (08:21)
[2016-12-28] MEDS: DOCUSATE SODIUM 100 MG CAPSULE PO SCH (08:21)
[2016-12-28] MEDS: GABAPENTIN 100 MG CAPSULE PO SCH ×3 (08:21→17:43)
[2016-12-28] MEDS: DULOXETINE HCL 30 MG CAPSULE.DR PO SCH (08:21)
[2016-12-28] MEDS: NICOTINE PATCH (14MG) 14 MG PATCH.TD24 TD SCH (08:21)
--- NOTE | 2016-12-28 14:30 | NUR ---
DR. KATHLEEN,DR. LUX IN TO SEE PT.
[2016-12-28 16:08] VITALS: BP 109/52
--- NOTE | 2016-12-28 18:04 | NUR ---
NO CHANGE IN STATUS.
[2016-12-28 20:00] VITALS: BP 111/56
[2016-12-28] MEDS: ATORVASTATIN 40 MG TABLET PO SCH (21:50)
[2016-12-28] MEDS: INSULIN DETEMIR 100 UNIT/ML CARTRIDGE SQ SCH (22:10)
--- NOTE | 2016-12-29 06:10 | NUR ---
RN GPS NOTES PATIENT RESTING HIS BED,EASILY GETS AGITED , NO ACUTE DISTRESS NOTED ,NO CHANGES IN STATUS. ALL NEEDS ATTENDED TO. WILL ENDORSE TO NEXT SHIFT FOR CONTINUITY CARE.
--- NOTE | 2016-12-29 06:14 | NUR ---
RN GPS NOTES PATIENT RESTING HER BED,EASILY GETS AGITED , NO ACUTE DISTRESS NOTED ,NO CHANGES IN STATUS. ALL NEEDS ATTENDED TO. WILL ENDORSE TO NEXT SHIFT FOR CONTINUITY CARE.
[2016-12-29] MEDS: BLOOD SUGAR DIAGNOSTIC 1 EACH STRIP IN SCH ×4 (07:27→22:36)
[2016-12-29] MEDS: INSULIN REGULAR, HUMAN 100 UNIT/ML 3 ML VIAL SQ PRN ×4 (07:28→22:46)
--- NOTE | 2016-12-29 07:28 | NUR ---
[id number]: BLOOD SUGAR IS 161 MG/DL AND 3 UNITS OF REGULAR INSULIN
[2016-12-29 08:00] VITALS: BP 102/56
[2016-12-29] MEDS: GABAPENTIN 100 MG CAPSULE PO SCH ×3 (08:06→17:25)
[2016-12-29] MEDS: DOCUSATE SODIUM 100 MG CAPSULE PO SCH (08:06)
[2016-12-29] MEDS: ASPIRIN 81 MG TAB.CHEW PO SCH (08:06)
[2016-12-29] MEDS: QUETIAPINE FUMARATE 25 MG TABLET PO SCH ×2 (08:07→17:25)
[2016-12-29] MEDS: TAMSULOSIN 0.4 MG CAP.SR.24H PO SCH (08:07)
[2016-12-29] MEDS: DULOXETINE HCL 30 MG CAPSULE.DR PO SCH (08:07)
[2016-12-29] MEDS: NICOTINE PATCH (14MG) 14 MG PATCH.TD24 TD SCH (08:08)
[2016-12-29] MEDS: METFORMIN 850 MG TABLET PO SCH ×2 (08:08→17:25)
--- NOTE | 2016-12-29 12:10 | NUR ---
[id number]: BLOOD SUGAR IS 170 MG/DL AND GAVE 3 UNITS OF REGULAR INSULIN.
[2016-12-29 16:00] VITALS: BP 98/54
--- NOTE | 2016-12-29 17:31 | NUR ---
[id number]: BLOOD SUGAR IS 188 MG/DL AND GAVE 3 UNITS OF REGULAR INSULIN.
[2016-12-29 20:00] VITALS: BP 117/61
[2016-12-29] MEDS: ATORVASTATIN 40 MG TABLET PO SCH (22:36)
[2016-12-29] MEDS: INSULIN DETEMIR 100 UNIT/ML CARTRIDGE SQ SCH (22:47)
--- NOTE | 2016-12-30 07:28 | NUR ---
[id number]: BLOOD SUGAR IS 161 MG/DL AND GAVE 3 UNITS OF REGULAR INSULIN Addendum: 12/30/16 at 1532 by MEGAN NORMAN RN WRONG ENTRY
[2016-12-30 08:00] VITALS: BP 120/72
[2016-12-30] MEDS: BLOOD SUGAR DIAGNOSTIC 1 EACH STRIP IN SCH ×4 (09:19→21:44)
[2016-12-30] MEDS: NICOTINE PATCH (14MG) 14 MG PATCH.TD24 TD SCH (09:19)
[2016-12-30] MEDS: TAMSULOSIN 0.4 MG CAP.SR.24H PO SCH (09:20)
[2016-12-30] MEDS: ASPIRIN 81 MG TAB.CHEW PO SCH (09:20)
[2016-12-30] MEDS: DULOXETINE HCL 30 MG CAPSULE.DR PO SCH (09:20)
[2016-12-30] MEDS: DOCUSATE SODIUM 100 MG CAPSULE PO SCH (09:20)
[2016-12-30] MEDS: GABAPENTIN 100 MG CAPSULE PO SCH ×3 (09:20→16:36)
[2016-12-30] MEDS: METFORMIN 850 MG TABLET PO SCH ×2 (09:20→16:40)
[2016-12-30] MEDS: INSULIN REGULAR, HUMAN 100 UNIT/ML 3 ML VIAL SQ PRN ×4 (09:27→21:46)
--- NOTE | 2016-12-30 09:27 | NUR ---
[id number]: BLOOD SUGAR IS 243 MG/DL AND GAVE 4 UNITS OF REGULAR INSULIN
[2016-12-30] MEDS: QUETIAPINE FUMARATE 25 MG TABLET PO SCH ×2 (09:29→16:36)
--- NOTE | 2016-12-30 12:05 | NUR ---
[id number]: BLOOD SUGAR IS 306 MG /DL AND GAVE 8 UNITS OF REGULAR INSULIN.
--- NOTE | 2016-12-30 12:10 | NUR ---
[id number]: BLOOD SUGAR IS 170 MG /DL AND GAVE 3 UNITS OF REGULAR INSULIN Addendum: 12/30/16 at 1533 by MEGAN NORMAN RN WRONG ENTRY
[2016-12-30 16:00] VITALS: BP 102/73
--- NOTE | 2016-12-30 19:37 | NUR ---
GPS/RN NOTE: PATIENT RESTING QUIETLY IN BED, ALERT, ORIENTED X2, NO APPARENT DISTRESS NOTED.
[2016-12-30 19:54] VITALS: BP 110/58
[2016-12-30] MEDS: DIVALPROEX SODIUM 250 MG TABLET.DR PO SCH (20:28)
[2016-12-30] MEDS: ATORVASTATIN 40 MG TABLET PO SCH (21:23)
[2016-12-30] MEDS: INSULIN DETEMIR 100 UNIT/ML CARTRIDGE SQ SCH (21:48)
--- NOTE | 2016-12-30 21:49 | NUR ---
GPS/RN NOTE: ACCUCHECK 178 MG/DL, 3 UNITS REG. INSULIN SC ADMINISTERED. HAD HS SNACKS, SANDWICH AND JUICE 120 ML.
[2016-12-31] MEDS: BLOOD SUGAR DIAGNOSTIC 1 EACH STRIP IN SCH ×4 (07:38→22:00)
[2016-12-31] MEDS: INSULIN REGULAR, HUMAN 100 UNIT/ML 3 ML VIAL SQ PRN ×3 (07:40→16:59)
--- NOTE | 2016-12-31 07:40 | NUR ---
[id number]: BLOOD SUGAR IS 184 MG/DL AND GAVE 3 UNITS OF REGULAR INSULIN.
[2016-12-31 08:13] VITALS: BP 111/52
[2016-12-31] MEDS: DOCUSATE SODIUM 100 MG CAPSULE PO SCH (08:14)
[2016-12-31] MEDS: DULOXETINE HCL 30 MG CAPSULE.DR PO SCH (08:14)
[2016-12-31] MEDS: NICOTINE PATCH (14MG) 14 MG PATCH.TD24 TD SCH (08:14)
[2016-12-31] MEDS: DIVALPROEX SODIUM 250 MG TABLET.DR PO SCH (08:14)
[2016-12-31] MEDS: ASPIRIN 81 MG TAB.CHEW PO SCH (08:14)
[2016-12-31] MEDS: QUETIAPINE FUMARATE 25 MG TABLET PO SCH ×2 (08:14→16:10)
[2016-12-31] MEDS: GABAPENTIN 100 MG CAPSULE PO SCH ×3 (08:14→16:10)
[2016-12-31] MEDS: TAMSULOSIN 0.4 MG CAP.SR.24H PO SCH (08:15)
[2016-12-31] MEDS: METFORMIN 850 MG TABLET PO SCH ×2 (08:15→16:10)
--- NOTE | 2016-12-31 12:15 | NUR ---
[id number]: BLOOD SUGAR IS 225 MG/DL AND GAVE 4 UNITS OF REGULAR INSULIN.
[2016-12-31] MEDS ORDERED: *INSULIN REGULAR(HUMULIN R)HUM 100 UNIT/ML VIAL SQ PRN (13:30)
[2016-12-31] MEDS ORDERED: DEXTROSE 50%-WATER 50 ML DISP.SYRIN IV PRN (13:30)
[2016-12-31 15:59] VITALS: BP 126/62
--- NOTE | 2016-12-31 16:59 | NUR ---
[id number]: BLOOD SUGAR IS 151 MG/DL AND GAVE 2 UNITS OF REGULAR INSULIN
--- NOTE | 2016-12-31 19:33 | NUR ---
GPS/RN NOTE: AWAKE, ALERT, LYING IN BED, ISOLATIVE. NO ACUTE DISTRESS NOTED.
[2016-12-31 19:53] VITALS: BP 109/58
[2017-01-01] MEDS: DIVALPROEX SODIUM 250 MG TABLET.DR PO SCH ×3 (00:11→21:09)
[2017-01-01] MEDS: ATORVASTATIN 40 MG TABLET PO SCH ×2 (00:11→21:09)
--- NOTE | 2017-01-01 00:11 | NUR ---
GPS/RN NOTE: PATIENT AWAKE, READY TO TAKE HIS NIGHT MEDS. ACCUCHECK DONE 169 MG/DL.
[2017-01-01] MEDS: INSULIN REGULAR, HUMAN 100 UNIT/ML 3 ML VIAL SQ PRN ×4 (00:18→21:11)
[2017-01-01] MEDS: INSULIN DETEMIR 100 UNIT/ML CARTRIDGE SQ SCH ×2 (00:19→21:11)
[2017-01-01 07:15] LABS: BASOPHILS # (AUTO) 0.1 /CMM (0.0-0.2); EOSINOPHILS # (AUTO) 0.3 /CMM (0.0-0.7); EOSINOPHILS % (AUTO) 3.2 % (0.0-6.0); HEMATOCRIT 38 % (39-51); HEMOGLOBIN 12.7 g/dL (13.5-17.5); LYMPHOCYTES # (AUTO) 2.1 /CMM (0.8-4.8); LYMPHOCYTES % (AUTO) 25.7 % (20.0-44.0); MEAN CORPUSCULAR HEMOGLOBIN 28 PG (26.0-33.0); MEAN CORPUSCULAR HGB CONC 33 g/dl (31.0-36.0); MEAN CORPUSCULAR VOLUME 83 fL (80-96); MONOCYTES # (AUTO) 0.7 /CMM (0.1-1.30); MONOCYTES % (AUTO) 8.1 % (2.0-12.0); NEUTROPHILS # (AUTO) 5.1 /CMM (1.8-8.9); PLATELET COUNT (AUTO) 233 /CMM (150-450); RDW COEFFICIENT OF VARIATION 18.4 (11.5-15.0); RED BLOOD CELL COUNT(AUTO) 4.61 MIL/uL (4.5-6.0); WHITE BLOOD COUNT (AUTO) 8.2 K/uL (4.3-11.0)
[2017-01-01 07:45] LABS: CALCIUM, SERUM 9.7 mg/dL (8.5-10.1); CARBON DIOXIDE 30 mmol/L (21-32); CHLORIDE 102 mmol/L (98-107); CREATININE 0.9 mg/dL (0.6-1.3); GLUCOSE 206 mg/dL (74-106); MAGNESIUM 1.5 mg/dL (1.8-2.4); PHOSPHORUS 3.7 mg/dL (2.5-4.9); POTASSIUM 4.6 mmol/L (3.5-5.1); SODIUM SERUM 141 mmol/L (136-145); UREA NITROGEN, BLOOD 14 mg/dL (7-18)
[2017-01-01 08:05] VITALS: BP 115/55
[2017-01-01] MEDS: BLOOD SUGAR DIAGNOSTIC 1 EACH STRIP IN SCH ×4 (08:21→21:09)
[2017-01-01] MEDS: DULOXETINE HCL 30 MG CAPSULE.DR PO SCH (08:54)
[2017-01-01] MEDS: ASPIRIN 81 MG TAB.CHEW PO SCH (08:54)
[2017-01-01] MEDS: NICOTINE PATCH (14MG) 14 MG PATCH.TD24 TD SCH (08:55)
[2017-01-01] MEDS: GABAPENTIN 100 MG CAPSULE PO SCH ×3 (08:55→18:27)
[2017-01-01] MEDS: DOCUSATE SODIUM 100 MG CAPSULE PO SCH (08:55)
[2017-01-01] MEDS: TAMSULOSIN 0.4 MG CAP.SR.24H PO SCH (09:56)
[2017-01-01] MEDS: QUETIAPINE FUMARATE 25 MG TABLET PO SCH ×2 (09:57→18:27)
[2017-01-01] MEDS: METFORMIN 850 MG TABLET PO SCH ×2 (09:57→18:27)
--- NOTE | 2017-01-01 12:53 | NUR ---
SW left a voicemail for pt's niece, Yue [phone] about pt's admittance to [facility] [id number] [place] [address] .
[2017-01-01 16:16] VITALS: BP 111/62
--- NOTE | 2017-01-01 17:00 | NUR ---
PHOTO TAKEN OF REDENNED PERINEUM.RECEIVED MYCOSTATIN ORDERS FROM DR. REEDER.
[2017-01-01] MEDS: NYSTATIN CREAM 15 GM TUBE TP SCH (18:28)
[2017-01-01 19:58] VITALS: BP 112/73
[2017-01-01 19:59] VITALS: BP 112/73
[2017-01-01] MEDS ORDERED: MAGNESIUM OXIDE 400 MG TABLET PO SCH (22:00)
[2017-01-02] MEDS: BLOOD SUGAR DIAGNOSTIC 1 EACH STRIP IN SCH ×2 (07:44→12:13)
[2017-01-02 08:00] VITALS: BP 110/54
[2017-01-02] MEDS: INSULIN REGULAR, HUMAN 100 UNIT/ML 3 ML VIAL SQ PRN ×2 (08:14→12:12)
[2017-01-02] MEDS: METFORMIN 850 MG TABLET PO SCH (08:46)
[2017-01-02] MEDS: ASPIRIN 81 MG TAB.CHEW PO SCH (08:46)
[2017-01-02] MEDS: GABAPENTIN 100 MG CAPSULE PO SCH ×2 (08:46→12:14)
[2017-01-02] MEDS: DIVALPROEX SODIUM 250 MG TABLET.DR PO SCH (08:46)
[2017-01-02] MEDS: DULOXETINE HCL 30 MG CAPSULE.DR PO SCH (08:46)
[2017-01-02] MEDS: DOCUSATE SODIUM 100 MG CAPSULE PO SCH (08:46)
[2017-01-02] MEDS: NICOTINE PATCH (14MG) 14 MG PATCH.TD24 TD SCH (08:46)
[2017-01-02] MEDS: TAMSULOSIN 0.4 MG CAP.SR.24H PO SCH (08:46)
[2017-01-02] MEDS: QUETIAPINE FUMARATE 25 MG TABLET PO SCH (08:46)
[2017-01-02] MEDS: NYSTATIN CREAM 15 GM TUBE TP SCH (08:49)
--- NOTE | 2017-01-02 11:52 | NUR ---
DR. SOL GAVE AN ORDER TO D/C HOLD AND D/C TO [facility]. PT. WITHOUT DISTRESS, DENIES SUICIDAL AND HOMICIDAL AND TO FOLLOW UP WITH PSYCH AND MEDICAL DOCTORS.
--- NOTE | 2017-01-02 12:47 | NUR ---
Discharge note: Pt. will discharge to [facility] [address] [place] [address] via [facility]. Pt. is alert and oriented x4, calm and cooperative, denies suicidal/homicidal ideations, and agrees with the discharge plan. Yue Garcia [phone] has been notified via voicemail. Pt. is a smoker, hence, referred to [facility] [phone] PIN: [phone] on Friday. 01/07/16 at 8:00 PM. Pt. verbalized understanding and agreed to attend. Psychiatrist, Dr. Mccain [address] [place] [phone] Leola Bueno [address] [address] [phone] will be the following doctors. Continuing Care form has been signed and filled out and discharge instructions will be provided to the accepting facility prior to transfer.
--- NOTE | 2017-01-02 15:30 | NUR ---
GPS RN: Pt. discharged to [facility] [id number] [place] [address] via [facility]. Patient's condition is stable for discharge, VS stable. Patient denies SI/HI/AVH at the time of discharge, no behavioral issues noted. All belongings returned to the patient. Meds reconciled and the copy of the current med list provided with the educational Exit Care. Report given to LINDA Chin at the facility. Patient left the unit on a gurney accompanied by 2 motel front desk clerk.
== END 2017-01-02 15:30 | DRG 885 ==
LOC: ER 13:50 → GPS 15:53
PROVIDERS: ADMIT Psychiatry & Neurology Psychiatry; ATTEND Psychiatry & Neurology Psychiatry
DX: F39 Unspecified mood [affective] disorder (principal); E11.65 Type 2 diabetes mellitus with hyperglycemia; F03.91 Unspecified dementia, unspecified severity, with behavioral disturbance; F33.3 Major depressive disorder, recurrent, severe with psychotic symptoms; G62.9 Polyneuropathy, unspecified; F29 Unspecified psychosis not due to a substance or known physiological condition; E78.5 Hyperlipidemia, unspecified; F17.200 Nicotine dependence, unspecified, uncomplicated; G89.29 Other chronic pain; H91.90 Unspecified hearing loss, unspecified ear; I10 Essential (primary) hypertension; N40.0 Benign prostatic hyperplasia without lower urinary tract symptoms; Z79.4 Long term (current) use of insulin; Z79.899 Other long term (current) drug therapy; Z86.73 Personal history of transient ischemic attack (TIA), and cerebral infarction without residual deficits; Z91.19 Patient's noncompliance with other medical treatment and regimen; Z73.6 Limitation of activities due to disability; M84.48XS Pathological fracture, other site, sequela
CPT/HCPCS: 36415; 71111-TC; 80048-TC; 80053-TC; 80061-TC; 80076-TC; 82947-TC; 82962-TC; 83540-TC; 83735-TC; 84100-TC; 84443-TC; 85025-TC; 87081-TC; J1815; Z7610